=== PATIENT | female | born 1980 | race Caucasian/White ===

== ENCOUNTER 2016-10-20 19:55 | Emergency (ER) | payer OTHER ==
[~2016-10-20] VITALS: Ht 157.5 cm; Wt 59.0 kg
[~2016-10-20 19:55] MED LIST: ACCUNEB SO1.25 MG/1; BACTRIM DS TAB1 EACH PO; CLONAZEPAM 0.50.5 M1 PO; MOBIC15 MG PO; VENTOLIN HFA 1818 GM INH; ZPAK PO
[2016-10-20 19:56] VITALS: BP 172/102
== END 2016-10-20 21:00 | disposition home or self-care (01) ==
LOC: ER 19:55
DX: Z53.21 Procedure and treatment not carried out due to patient leaving prior to being seen by health care provider (principal); J45.909 Unspecified asthma, uncomplicated; F17.210 Nicotine dependence, cigarettes, uncomplicated

== ENCOUNTER 2017-03-28 19:36 | Observation (INO) | payer OTHER ==
[2017-03-28] VITALS (7 sets, daily range): BP systolic 109–141; BP diastolic 56–73
[~2017-03-28] VITALS: Ht 157.5 cm; Wt 77.1 kg
--- NOTE | ~2017-03-28 | HC ---
[facility] [place] [place] [address] CONSULTATION Name: UMESH DESIR Room #: 418-P [facility] Holli Lopez#: [id number] Admission: 03/28/17 Attend Phys: Miguel Paz MD Discharge: 03/30/17 Date of : 76 Report #: [id number] THIS REPORT FOR: //name// CC: Andrea Leung [facility] physician/PCP DATE OF SERVICE: 03/29/2017 REQUESTING PHYSICIAN: Dr. Leung. REASON FOR CONSULTATION: Anemia. HISTORY OF PRESENT ILLNESS: The patient is a 36-year-old woman who does not have a primary care physician. She apparently was feeling extremely weak, dizzy and had shortness of breath on exertion and went to [facility] to have labs checked. She had CBC which showed severe anemia. She was told that she needs to come to the hospital. She came to the Emergency Room yesterday. She was found to have profound anemia with hemoglobin 5.8, MCV 53.6 and platelets 628,000. Emergency Room physician, Dr. Hunt, contacted me. She was admitted to the hospital. She was given transfusions of packed red blood cells. Iron studies and anemia workup was ordered according to my recommendations. Hematology is consulted. The patient now in the room after having 2 units of packed red blood cells. She is doing okay, but still has some fatigue. She admits that she does not have good diet. She does not eat on regular basis. She is eating fast food mainly. She does not have melena or hematochezia. Her bowel movements are quite unchanged. She usually has some constipation. She has 3-4 bowel movements per week, but this has not changed. She says all her life she had this frequency of bowel movements. She has heavy periods. Her periods used to be very regular and very heavy. Now, she does not even remember when she has periods. She does not pay attention, but has continued to be very heavy, but less frequent. She does not have any abdominal pain. Complains of weight loss. PAST MEDICAL HISTORY: Unremarkable. She does not have a primary care physician, as this was mentioned before. She has grown up children. She has not been for more than 15 years. Previously, she does not remember if she had iron deficiency. FAMILY HISTORY: Noncontributory. There is no family history of colon cancer or anemia. She believes she has problems with thyroid and various cancers, but she is not sure what type and does not believe she has colon cancer history. SOCIAL HISTORY: She is smoking. Has 2 children, aged 20 and 15. PHYSICAL EXAMINATION: GENERAL: Reveals well-developed, well-nourished female, not in acute distress. [address] [address] CONSULTATION Name: UMESH DESIR Room #: 418-P [facility] M.RAce#: [id number] Admission: 03/28/17 Attend Phys: Miguel Paz MD Discharge: 03/30/17 Date of : 76 Report #: [id number] VITAL SIGNS: Blood pressure 123/72, heart rate is 83, temperature 98.5 and respirations 18. HEENT EXAMINATION: Does not reveal icterus. No thrush. NECK: Supple. HEART: Normal S1, S2. LUNGS: Clear. ABDOMEN: Soft. No organomegaly. EXTREMITIES: No edema. MENTAL STATUS: Alert and oriented x 3. SKIN EXAMINATION: Does not reveal any rash. LABORATORY DATA: White count 7.2, hemoglobin 6.9, MCV 60.7, platelets 495, 000 and reticulocyte count, absolute 0.07. Ferritin 2. Creatinine is 0.7. Total bilirubin 0.3. TIBC 542, iron saturation 2 and iron 9. ASSESSMENT AND PLAN: 1. 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 Laboratory results are classical for iron deficiency. Most likely, she has iron deficiency secondary to menometrorrhagia. This is a chronic problem for her. Clinical and hematological picture history is consistent with long-standing iron deficiency. Because the patient does not have regular medical care, I recommend to give one more unit of packed red blood cells. Recommend to start ferrous sulfate 325 once a day. Recommend to check Hemoccult. I recommended the patient to have CBC checked in one month at [facility] again. I strongly recommended to reinstate her Medicaid. 2. 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 Thank you very much for allowing me to participate in the care of this patient. <ELECTRONICALLY SIGNED> By: Albert Laguerre MD 04/06/17 [id number] Albert Laguerre MD /nt
[2017-03-28 20:09] LABS: MCH 15.7 pg (26.0-34.0); MCHC 29.3 g/dL (28.0-37.0); MCV 53.6 fL (80.0-100.0); PLATELET COUNT 628 thou/uL (150-400); RBC 3.66 mil/uL (4.20-5.00); RDW 21.4 % (10.5-14.5); WBC 6.8 thou/uL (4.0-11.0)
[2017-03-28 20:14] LABS: HEMATOCRIT 19.6 % (37.0-47.0); HEMOGLOBIN 5.8 gm/dL (12.0-15.0)
[2017-03-28 20:16] LABS: CALCIUM 8.4 mg/dL (8.5-10.1); CREATININE 0.7 mg/dL (0.6-1.0); POTASSIUM 3.9 mmol/L (3.5-5.1)
[2017-03-28 20:22] LABS: ALBUMIN 3.6 g/dL (3.4-5.0); TOTAL BILIRUBIN 0.3 mg/dL (<0.1-1.0)
[2017-03-28 20:23] LABS: APTT 25.7 Seconds (24.5-32.8); PROTIME 10.3 Seconds (9.3-11.4)
[2017-03-28 20:34] LABS: HYPOCHROMASIA 2+
[2017-03-28 20:35] LABS: ANISOCYTOSIS 2+; MICROCYTES 1+
[2017-03-28 21:35] LABS: OBSERVED RETIC COUNT 1.89 % (0.6-2.6)
[2017-03-28 21:54] LABS: % SATURATION 2 % (20-39); IRON 9 ug/dL (50-170); TIBC 542 ug/dL (250-450)
[2017-03-28 22:25] LABS: FOLIC ACID 13.3 ng/mL (8.6-58.9)
[2017-03-29 04:04] LABS: HEMATOCRIT 23.4 % (37.0-47.0); HEMOGLOBIN 6.9 gm/dL (12.0-15.0); WBC 7.2 thou/uL (4.0-11.0)
[2017-03-29 04:07] LABS: MCH 17.8 pg (26.0-34.0); MCHC 29.3 g/dL (28.0-37.0); RBC 3.86 mil/uL (4.20-5.00); RDW 30.1 % (10.5-14.5)
[2017-03-29 04:13] LABS: MCV 60.6 fL (80.0-100.0)
[2017-03-29 04:43] VITALS: BP 130/71
[2017-03-29 08:00] VITALS: BP 123/72
[2017-03-29 14:31] VITALS: BP 124/71; BP 132/81; BP 134/86
[2017-03-29 16:00] VITALS: BP 139/93
[2017-03-29 19:45] VITALS: BP 136/96
[2017-03-30 04:10] VITALS: BP 118/78
[2017-03-30 06:23] LABS: HEMOGLOBIN 8.4 gm/dL (12.0-15.0); MCH 19.3 pg (26.0-34.0); MCHC 31.1 g/dL (28.0-37.0); MCV 62.2 fL (80.0-100.0); RBC 4.35 mil/uL (4.20-5.00); RDW 31.8 % (10.5-14.5); WBC 6.4 thou/uL (4.0-11.0)
[2017-03-30 07:59] VITALS: BP 114/65
[2017-03-30 08:00] VITALS: BP 166/84
[2017-03-30] MEDS ORDERED: TYLENOL325 MG PO (09:33)
[2017-03-30] MEDS ORDERED: IRON325 PO (09:33)
[2017-03-30] MEDS ORDERED: MIRALAX17 GM PO (09:34)
[2017-03-30 10:45] VITALS: BP 166/84
[2017-03-31 19:08] LABS: HGB SOLUBILITY Negative (Negative)
[2017-10-19] MEDS ORDERED: IBUPROFEN 600600 M1 PO (20:36)
== END 2017-03-30 11:29 | disposition home or self-care (01) ==
LOC: ER 19:36 → 4E 21:25 → EROBS 21:25 → 4E 23:05
PROVIDERS: Emergency Medicine; Nurse Practitioner Acute Care
DX: D50.9 Iron deficiency anemia, unspecified (principal); N92.0 Excessive and frequent menstruation with regular cycle; N83.202 Unspecified ovarian cyst, left side; J45.909 Unspecified asthma, uncomplicated; F17.210 Nicotine dependence, cigarettes, uncomplicated; D47.3 Essential (hemorrhagic) thrombocythemia; D61.9 Aplastic anemia, unspecified

== ENCOUNTER 2018-10-18 20:06 | Emergency (ER) | payer OTHER ==
[~2018-10-18] VITALS: Ht 160 cm; Wt 72.6 kg
[~2018-10-18 20:06] MED LIST changes: +IBUPROFEN 600600 M1 PO; +IRON325 PO; +MIRALAX17 GM PO; +TYLENOL325 MG PO
[2018-10-18 22:45] VITALS: BP 111/58
== END 2018-10-18 22:47 | disposition home or self-care (01) ==
LOC: ER 20:06
DX: G43.909 Migraine, unspecified, not intractable, without status migrainosus (principal); M79.671 Pain in right foot; J45.909 Unspecified asthma, uncomplicated; F17.210 Nicotine dependence, cigarettes, uncomplicated; Z98.51 Tubal ligation status

== ENCOUNTER 2020-02-14 00:11 | Emergency (ER) | payer OTHER ==
[~2020-02-14] VITALS: Ht 157.5 cm; Wt 77.1 kg
[2020-02-14] MEDS ORDERED: TOBRAMYCIN SULFA5 M1 OPHTHALMIC (01:45)
[2020-02-14 02:00] VITALS: BP 160/92
== END 2020-02-14 02:00 | disposition home or self-care (01) ==
LOC: ER 00:11
DX: H10.89 Other conjunctivitis (principal); J45.909 Unspecified asthma, uncomplicated; F17.210 Nicotine dependence, cigarettes, uncomplicated; Z98.51 Tubal ligation status

== ENCOUNTER 2021-02-25 13:01 | Emergency (ER) | payer OTHER ==
[~2021-02-25] VITALS: Ht 162.6 cm; Wt 78.5 kg
[~2021-02-25 13:01] MED LIST changes: +TOBRAMYCIN SULFA5 M1 OPHTHALMIC
[2021-02-25 13:26] VITALS: BP 130/79
[2021-02-25 15:46] LABS: ABSOLUTE NEUTROPHILS 4.7 thou/uL (1.4-8.2); BASOPHILS 1.4 % (0.0-2.0); HEMATOCRIT 35.3 % (37.0-47.0); HEMOGLOBIN 11.1 gm/dL (12.0-15.0); LYMPHOCYTES 20.1 % (24.0-44.0); MCHC 31.5 g/dL (28.0-37.0); MCV 76.1 fL (80.0-100.0); MONOCYTES 7.6 % (1.0-8.0); PLATELET COUNT 350 thou/uL (150-400); POLYS 68.9 % (36.0-66.0); RBC 4.64 mil/uL (4.20-5.00); RDW 15.5 % (10.5-14.5); WBC 6.8 thou/uL (4.0-11.0)
[2021-02-25 15:55] LABS: CALCIUM 8.4 mg/dL (8.5-10.1); CREATININE 0.6 mg/dL (0.6-1.0); POTASSIUM 4.2 mmol/L (3.5-5.1)
[2021-02-25 16:01] LABS: ALBUMIN 3.4 g/dL (3.4-5.0); TOTAL BILIRUBIN 0.2 mg/dL (0.2-1.0)
== END 2021-02-25 16:28 | disposition left against medical advice (07) ==
LOC: ER 13:01
PROVIDERS: Nurse Practitioner
DX: M72.2 Plantar fascial fibromatosis (principal); J45.909 Unspecified asthma, uncomplicated; F17.210 Nicotine dependence, cigarettes, uncomplicated; Z98.51 Tubal ligation status